=== PATIENT | female | born 1995 | race African-American/Black ===

== ENCOUNTER 2021-09-16 13:05 | Emergency (ER) | payer SELFPAY ==
[2021-09-16 13:37] LABS: #Basophils 0.1 thou/uL (0.0-0.2); #Monocytes 0.8 thou/uL (0.11-0.59); #Neutrophils 3.7 thou/uL (1.40-6.50); %Basophils 0.6 % (0.0-1.0); %Eosinophils 0.2 % (0.0-10.0); %Lymphocytes 46.7 % (21.0-51.0); %Monocytes 9.7 % (0.0-10.0); %Neutrophils 42.8 % (42.0-75.0); Hemoglobin 12.3 g/dL (12.0-16.0); Mean Corpuscular HGB CONC 32.7 g/dL (32.0-36.0); Mean Corpuscular Hemoglobin 29.8 pg (27.0-31.0); Mean Corpuscular Volume 91.2 fL (78.0-98.0); Mean Platelet Volume 7.7 fL (7.4-10.4); Platelet Count 223 thou/uL (130-400); RBC Distribution Width 11.6 % (11.5-14.5); Red Blood Cell (RBC) Count 4.11 mill/uL (4.20-5.40); White Blood Cell (WBC) Count 8.5 thou/uL (4.8-10.8)
[2021-09-16 13:56] LABS: ALT (SGPT) 16 U/L (8-55); AST (SGOT) 18 U/L (5-34); Albumin 4.1 g/dL (3.5-5.0); Alkaline Phosphatase 57 U/L (40-110); Anion Gap 11 mmol/L (10-20); BUN (Urea Nitrogen) 10 mg/dL (7.0-18.7); Bilirubin, Total 0.3 mg/dL (0.2-1.2); Calc. Creatinine Clearance 0 mL/min (70-130); Calcium 9.8 mg/dL (7.8-10.44); Carbon Dioxide 26 mmol/L (22-29); Chloride 102 mmol/L (98-107); Estimated GFR 122; Globulin 3.7 g/dL (2.4-3.5); Glucose 81 mg/dL (70-105); Lipase 32 U/L (8-78); Potassium 4.2 mmol/L (3.5-5.1); Protein, Total 7.8 g/dL (6.0-8.3); Sodium 135 mmol/L (136-145)
[2021-09-16 14:43] LABS: Bilirubin Negative (Negative); Blood, Urine Negative (Negative); Clarity Turbid (Clear); Glucose, Urine (Dipstick) Normal (Negative); Ketone, Urine Negative (Negative); Leukocyte Negative Leu/uL (Negative); Nitrite Negative (Negative); Protein, Urine (Dipstick) Negative (Neg-Trace); Urobilinogen Normal mg/dL (Less than 2); pH, Urine 7.5 (5.0-9.0)
[2021-09-17 15:56] LABS: Chlamydia by PCR Not Detected (NotDetected); GC by PCR Not Detected (NotDetected)
== END 2021-09-16 18:08 | disposition home or self-care (01) ==
LOC: ERS 13:05
DX: O23.591 Infection of other part of genital tract in pregnancy, first trimester (principal); Z3A.01 Less than 8 weeks gestation of pregnancy
CPT/HCPCS: 36415; 76856; 80053; 81003; 83690; 84702; 85025; 87480; 87491; 87510; 87591; 87660

== ENCOUNTER 2022-01-22 11:52 | Emergency (ER) | payer OTHER ==
[2022-01-22] MEDS ORDERED: Morphine 4 MG/ML VIAL ONE (12:31)
[2022-01-22] MEDS ORDERED: Ondansetron PF 4 MG/2 ML Vial ONE (12:46)
[2022-01-22 13:21] LABS: Bilirubin Negative (Negative); Blood, Urine Negative (Negative); Clarity Clear (Clear); Glucose, Urine (Dipstick) Normal (Negative); Ketone, Urine Negative (Negative); Leukocyte Negative Leu/uL (Negative); Nitrite Negative (Negative); Protein, Urine (Dipstick) Negative (Neg-Trace); Urobilinogen Normal mg/dL (Less than 2)
== END 2022-01-22 14:45 | disposition short-term general hospital (02) ==
LOC: ERS 11:52
DX: O99.612 Diseases of the digestive system complicating pregnancy, second trimester (principal); Z3A.24 24 weeks gestation of pregnancy
CPT/HCPCS: 81003; 87086; 96374; 96375; J2270; J2405

== ENCOUNTER 2022-02-19 13:09 | Outpatient (CLI) | payer OTHER | END 2022-02-19 13:10 | disposition home or self-care (01) | LOC: BICULT 13:09 | PROVIDERS: ATTEND Nurse Practitioner Women's Health | DX: Z34.02 Encounter for supervision of normal first pregnancy, second trimester (principal); Z3A.29 29 weeks gestation of pregnancy | CPT/HCPCS: 76805 ==